=== PATIENT | female | born 1995 | race Caucasian/White ===

== ENCOUNTER 2017-03-21 11:05 | Emergency (ER) | payer BC ==
[2017-03-21] MEDS ORDERED: LIDOCAINE 1%/EPI 1:100,000 20 ML VIAL. INJ ONE (11:30)
[2017-03-21] MEDS ORDERED: IV NORMAL SALINE 1000ML BAG 1,000 ML IV ONE (11:30)
[2017-03-21 12:04] LABS: BASO % 0 % (0-3); EOS % 1 % (0-3); HEMATOCRIT 39.6 % (36.0-47.0); HEMOGLOBIN 12.9 g/dL (12.0-15.5); LYMPH # 1.4 x10^3/uL (1.0-4.8); LYMPH % 20 % (24-48); MEAN CORPUSCULAR HEMOGLOBIN 29 pg (25-35); MEAN CORPUSCULAR HGB CONC 33 g/dL (31-37); MEAN CORPUSCULAR VOLUME 89 fL (79-100); MONO % 11 % (0-9); NEUT % 68 % (31-73); PLATELET COUNT 252 x10^3/uL (140-400); RED BLOOD COUNT 4.44 x10^6/uL (3.50-5.40); RED CELL DISTRIBUTION WIDTH 13.4 % (11.5-14.5); WHITE BLOOD COUNT 7.2 x10^3/uL (4.0-11.0)
[2017-03-21 12:07] LABS: CALCIUM 9.3 mg/dL (8.5-10.1); CREATININE 0.8 mg/dL (0.6-1.0); GFR 92.4; POTASSIUM 4.5 mmol/L (3.5-5.1)
[2017-03-21 12:13] LABS: ALBUMIN 3.9 g/dL (3.4-5.0); MAGNESIUM 2.2 mg/dL (1.8-2.4); TOTAL BILIRUBIN 0.5 mg/dL (0.2-1.0); TOTAL PROTEIN 7.7 g/dL (6.4-8.2)
[2017-03-21 12:40] VITALS: BP 111/64
[2017-03-21 12:45] LABS: BILIRUBIN,URINE NEGATIVE (NEG); GLUCOSE,URINE NEGATIVE (NEG); NITRITE,URINE NEGATIVE (NEG); PROTEIN,URINE NEGATIVE (NEG-TRACE); UROBILINOGEN,URINE 0.2 mg/dL (0.2 mg/dL)
[2017-03-21 12:53] LABS: BARBITURATES NEG (NEG); BENZODIAZEPINES NEG (NEG); CANNABINOIDS NEG (NEG); COCAINE NEG (NEG); METHADONE NEG (NEG); OPIATES NEG (NEG); PHENCYCLIDINE NEG (NEG)
[2017-03-21 12:56] LABS: BACTERIA,URINE 0 /HPF (0-FEW); RBC,URINE OCC /HPF (0-2); SQUAMOUS EPITHELIAL CELL,UR MOD /LPF
--- NOTE | 2017-03-21 12:58 | PHYS DOC ---
Past Medical History Past Medical History: Hypotension Additional Past Surgical Histo: wisdom teeth Alcohol Use: None Drug Use: None Adult General Chief Complaint Chief Complaint: SYNCOPE HPI HPI Patient is a very pleasant 21 year old female presenting to the emergency department for evaluation of a syncope episode. Patient is interested in the healthcare field and was getting ready to shadow Dr. Montejo for a cholecystectomy when she was standing in the preop area for approximately 15 minutes and became lightheaded and had some chest tightness blurred vision and then collapsed. She fell straight forward onto the ground and struck her chin on the ground and now has a chin laceration. Her tetanus status is up-to-date and she says that she is feeling much better now. She denies any head neck chest abdomen back or extremity pain. The only place she says that she is hurting is over her chin. Patient reportedly has been having low blood pressure episodes with some dizziness and has seen a racing car driver and is scheduled to get an echocardiogram and stress test. Patient says that she was not walking her legs and she denies any dehydration. She is quite well appearing in no obvious distress with normal vital signs. Review of Systems Review of Systems Constitutional: Denies fever or chills [] Respiratory: Denies shortness of breath [] Cardiovascular: No chest pain currently GI: Denies abdominal pain, nausea, vomiting. Musculoskeletal: Denies back pain or joint pain [] Integument: Positive laceration Neurologic: Denies headache, focal weakness or sensory changes [] Current Medications Current Medications Current Medications Medications (Trade) Dose Ordered Sig/[facility] Start Time Stop Time Status Last Admin Dose Admin Ketorolac Tromethamine (Toradol) 30 mg 1X ONCE 03/21/17 13:45 03/21/17 13:46 DC Lidocaine/ Epinephrine (Xylocaine 1%-Epi 1:100,000) 20 ml 1X ONCE 03/21/17 11:30 03/21/17 11:31 DC 03/21/17 11:30 20 ML Sodium Chloride 1,000 ml @ 1,000 mls/hr 1X ONCE 03/21/17 11:30 03/21/17 12:29 DC 03/21/17 11:45 1,000 MLS/HR Allergies Allergies Allergies Coded Allergies Type Severity Reaction Last Updated Verified No Known Drug Allergies 03/21/17 No Physical Exam Physical Exam Constitutional: Well developed, well nourished, no acute distress, non-toxic appearance. [] HENT: Normocephalic. Eyes: PERRLA, EOMI, conjunctiva normal, no discharge. [] Neck: Normal range of motion, no midline tenderness, supple, no stridor. [] Cardiovascular:Heart rate regular rhythm, no murmur [] Lungs & Thorax: Bilateral breath sounds clear to auscultation [] Abdomen: Bowel sounds normal, soft, no tenderness, no masses, no pulsatile masses. [] Skin: Approximate 2 cm horizontal laceration on her chin. Wound examined and bloodless field and there is no foreign body. No muscle or deep structures visualized. Back: No tenderness, no CVA tenderness. [] Extremities: No tenderness, no cyanosis, no clubbing, ROM intact, no edema. [] Neurologic: Alert and oriented X 3, normal motor function, normal sensory function, no focal deficits noted. [] Current Patient Data Vital Signs Vital Signs Date Time Temp Pulse Resp B/P (MAP) Pulse Ox O2 Delivery O2 Flow Rate FiO2 03/21/17 12:40 68 111/64 (80) 100 Room Air 03/21/17 11:10 98.2 16 98.2 Lab Values Laboratory Tests Test 03/21/17 11:40 03/21/17 11:43 03/21/17 12:30 White Blood Count 7.2 x10^3/uL (4.0-11.0) Red Blood Count 4.44 x10^6/uL (3.50-5.40) Hemoglobin 12.9 g/dL (12.0-15.5) Hematocrit 39.6 % (36.0-47.0) Mean Corpuscular Volume 89 fL (79-100) Mean Corpuscular Hemoglobin 29 pg (25-35) Mean Corpuscular Hemoglobin Concent 33 g/dL (31-37) Red Cell Distribution Width 13.4 % (11.5-14.5) Platelet Count 252 x10^3/uL (140-400) Neutrophils (%) (Auto) 68 % (31-73) Lymphocytes (%) (Auto) 20 % (24-48) L Monocytes (%) (Auto) 11 % (0-9) H Eosinophils (%) (Auto) 1 % (0-3) Basophils (%) (Auto) 0 % (0-3) Neutrophils # (Auto) 4.9 x10^3uL (1.8-7.7) Lymphocytes # (Auto) 1.4 x10^3/uL (1.0-4.8) Monocytes # (Auto) 0.8 x10^3/uL (0.0-1.1) Eosinophils # (Auto) 0.1 x10^3/uL (0.0-0.7) Basophils # (Auto) 0.0 x10^3/uL (0.0-0.2) Sodium Level 139 mmol/L (136-145) Potassium Level 4.5 mmol/L (3.5-5.1) Chloride Level 102 mmol/L (98-107) Carbon Dioxide Level 29 mmol/L (21-32) Anion Gap 8 (6-14) Blood Urea Nitrogen 16 mg/dL (7-20) Creatinine 0.8 mg/dL (0.6-1.0) Estimated GFR (Cockcroft-Gault) 92.4 BUN/Creatinine Ratio 20 (6-20) Glucose Level 97 mg/dL (70-99) Calcium Level 9.3 mg/dL (8.5-10.1) Magnesium Level 2.2 mg/dL (1.8-2.4) Total Bilirubin 0.5 mg/dL (0.2-1.0) Aspartate Amino Transferase (AST) 14 U/L (15-37) L Alanine Aminotransferase (ALT) 14 U/L (14-59) Alkaline Phosphatase 57 U/L (46-116) Creatine Kinase 62 U/L (26-192) Total Protein 7.7 g/dL (6.4-8.2) Albumin 3.9 g/dL (3.4-5.0) Albumin/Globulin Ratio 1.0 (1.0-1.7) POC Urine HCG, Qualitative Hcg negative (Negative) Urine Collection Type Unknown Urine Color Yellow Urine Clarity Clear Urine pH 7.0 Urine Specific [place] <=1.005 Urine Protein Negative mg/dL (NEG-TRACE) Urine Glucose (UA) Negative mg/dL (NEG) Urine Ketones (Stick) Negative mg/dL (NEG) Urine Blood Negative (NEG) Urine Nitrite Negative (NEG) Urine Bilirubin Negative (NEG) Urine Urobilinogen Dipstick 0.2 mg/dL (0.2 mg/dL) Urine Leukocyte Esterase Small (NEG) Urine RBC Occ /HPF (0-2) Urine WBC 1-4 /HPF (0-4) Urine Squamous Epithelial Cells Mod /LPF Urine Bacteria 0 /HPF (0-FEW) Urine Opiates Screen Neg (NEG) Urine Methadone Screen Neg (NEG) Urine Barbiturates Neg (NEG) Urine Phencyclidine Screen Neg (NEG) Urine Amphetamine/Methamphetamine Neg (NEG) Urine Benzodiazepines Screen Neg (NEG) Urine Cocaine Screen Neg (NEG) Urine Cannabinoids Screen Neg (NEG) Urine Ethyl Alcohol Neg (NEG) Laboratory Tests 03/21/17 11:40 Laboratory Tests 03/21/17 11:40 EKG EKG Sinus rhythm at 60 bpm with normal axis no obvious ST elevation or depression and normal T waves. Normal QTC with no signs of Brugada syndrome and normal OH with no obvious signs of [id number]-[id number]-Pbopt. Radiology/Procedures Radiology/Procedures Indication: [Chin laceration] Procedure: The patient was placed in the appropriate position and anesthesia around the 4 mL of 1% lidocaine with epinephrine. The area was then cleansed with Betadine and irrigated copiously with saline. The laceration was closed with 450 plain gut sutures Total repaired wound length: 2 cm The patient tolerated the procedure none Complications: Well Course & Med Decision Making Course & Med Decision Making Patient meets no indication for her head or cervical spine imaging based off [place] C-spine and head CT rules. She has benign physical exam and she is up walking around the emergency department in no obvious distress. This may have been vasovagal in etiology but she probably does need some more workup with stress and echo. I told her to follow with cardiology and try to get this workup done before she returns to college on the . Patient and family aware and agreeable with plan and verbalized understanding of the above instructions. Dragon Disclaimer Dragon Disclaimer This electronic medical record was generated, in whole or in part, using a voice recognition dictation system. Departure Departure Impression: Primary Impression: Syncope and collapse Additional Impression: Chin laceration Disposition: HOME, SELF-CARE Condition: GOOD Referrals: VANESSA CUTLER (PCP) Patient Instructions: Laceration Care, Adult Additional Instructions: KEEP WOUND COVERED IN THE SUN. COME BACK WITH ANY CONCERNS. THANK YOU! Problem Qualifiers Additional Impression: Chin laceration Encounter type: initial encounter Qualified Codes: S01.81XA - Laceration without foreign body of other part of head, initial encounter DARRIUS LUQUE DO Mar 21, 2017 12:58
[2017-03-21] MEDS ORDERED: KETOROLAC TROMETHAMINE 30 MG/ML INJ. IV ONE (13:45)
--- NOTE | 2017-03-21 14:51 | EKG ---
[facility] [address] [place] [address] Test Date: 2017-03-21 Test Time: 11:06:58 Pat Name: MARTHA RIZO Department: Room: Gender: F Shirt Bander: : 1995 Requested By: DARRIUS LUQUE Order Number: [id number] Reading MD: Treasure Merritt Measurements Intervals [place] Rate: 60 P: 36 [place]: 118 QRS: 83 QRSD: 86 T: 40 QT: 386 QTc: 386 Interpretive Statements SINUS RHYTHM NORMAL EKG Electronically Signed On 03-21-2017 20:48:17 CDT by Treasure Merritt
== END 2017-03-21 13:03 | disposition home or self-care (01) ==
LOC: ER 11:05
DX: S01.81XA Laceration without foreign body of other part of head, initial encounter (principal); R55 Syncope and collapse; R07.89 Other chest pain; I95.9 Hypotension, unspecified; W01.198A Fall on same level from slipping, tripping and stumbling with subsequent striking against other object, initial encounter; Y93.89 Activity, other specified; Y92.89 Other specified places as the place of occurrence of the external cause; Y99.8 Other external cause status
CPT/HCPCS: 12011; 36415; 80053; 80307; 81001; 81025; 82550; 83735; 85025; 87086; 93005; 96360; 99285; J3490; J7030; G0479